=== PATIENT | male | born 1980 | race Caucasian/White ===

== ENCOUNTER → 2020-10-27 | Outpatient (CLI) | payer OTHER ==
[~2020-10-27] MED LIST: NO HOME MEDICATIONS
== END ==
LOC: COL.PUL 09-16 13:00
DX: R06.02 Shortness of breath (principal)

== ENCOUNTER → 2020-12-18 | Outpatient (CLI) | payer OTHER | LOC: COL.PUL 09:13 | DX: R06.02 Shortness of breath (principal) | CPT/HCPCS: J7674 ==